=== PATIENT | female | born 1960 | race Caucasian/White ===

== ENCOUNTER 2018-08-19 07:57 | Emergency (ER) | payer BC ==
[2018-08-19 08:49] LABS: #Basophils 0.1 thou/uL (0.0-0.2); #Eosinphils 0.1 thou/uL (0.0-0.7); #Lymphocytes 3.1 thou/uL (1.20-3.40); #Monocytes 0.6 thou/uL (0.11-0.59); %Basophils 1.1 % (0.0-1.0); %Eosinophils 1.3 % (0.0-10.0); %Lymphocytes 28.5 % (21.0-51.0); %Monocytes 5.5 % (0.0-10.0); %Neutrophils 63.7 % (42.0-75.0); Hemoglobin 14.3 g/dL (12.0-16.0); Mean Corpuscular HGB CONC 32.8 g/dL (32.0-36.0); Mean Corpuscular Hemoglobin 30.8 pg (27.0-31.0); Mean Corpuscular Volume 93.8 fL (78.0-98.0); Platelet Count 317 thou/uL (130-400); RBC Distribution Width 11.3 % (11.5-14.5); Red Blood Cell (RBC) Count 4.64 mill/uL (4.20-5.40)
[2018-08-19 08:52] LABS: ALT (SGPT) 28 U/L (8-55); AST (SGOT) 25 U/L (5-34); Albumin 4.4 g/dL (3.5-5.0); Alkaline Phosphatase 57 U/L (40-150); Anion Gap 13 mmol/L (10-20); BUN (Urea Nitrogen) 14 mg/dL (9.8-20.1); Bilirubin, Total Less than 0.2 mg/dL (0.2-1.2); Calc. Creatinine Clearance 0 mL/min (70-130); Calcium 9.9 mg/dL (7.8-10.44); Carbon Dioxide 25 mmol/L (22-29); Chloride 104 mmol/L (98-107); Estimated GFR-MDRD 83; Globulin 2.9 g/dL (2.4-3.5); Glucose 93 mg/dL (70-105); Lipase 32 U/L (8-78); Potassium 4.1 mmol/L (3.5-5.1); Protein, Total 7.3 g/dL (6.0-8.3); Sodium 138 mmol/L (136-145)
[2018-08-19 09:11] LABS: Bilirubin Negative (Negative); Blood, Urine Trace (Negative); Clarity SLIGHTLY (Clear); Glucose, Urine (Dipstick) Negative (Negative); Leukocyte Negative (Negative); Nitrite Negative (Negative); Protein, Urine (Dipstick) Negative (Neg-Trace); Specific Gravity, Urine 1.015 (1.005-1.030); Urobilinogen 0.2 mg/dL (0.2-1.0)
[2018-08-19 09:17] LABS: Bacteria/HPF None Seen HPF (None Seen); Crystals/HPF None Seen HPF (Negative); Hyaline Casts/LPF NONE SEEN LPF (0-3 Hyaline); Other Casts/LPF None Seen LPF (0-3 Hyaline); Oval Fat Bodies/HPF None Seen HPF (None Seen); RBC/HPF 0-3 HPF (0-3); Renal Epithelial None Seen HPF (0-3); Sperm/HPF None Seen HPF (None Seen); Squamous Epithelial 0-3 HPF (0-3); Transitional Epithelial NONE SEEN HPF (0-3); Trichomonas/HPF None Seen HPF (None Seen); WBC/HPF 0-3 HPF (0-3); Yeast-All Forms None Seen HPF (None Seen)
--- NOTE | 2018-08-19 10:41 | CT ---
CT ABDOMEN AND PELVIS WITH IV CONTRAST: DATE: 08/19/18. HISTORY: Abdominal pain. This was diagnosed 2 weeks ago with diverticulitis. The patient states the patient is localized and more severe in the suprapubic region of the left lower quadrant. COMPARISON: None available. FINDINGS: There is minimal linear atelectasis versus scarring in the lingula. Lung bases are otherwise clear. Mild degenerative changes are seen in the spine. Vascular calcifications are seen in the abdominal aorta and involving the iliac arteries with areas o f eccentric plaque seen within the abdominal aorta. A subcentimeter too small to characterize hypodense lesion is seen in the superior pole left kidney. The liver, spleen, pancreas, bilateral adrenal glands, and right kidney demonstrate a normal CT appea mitch. The uterus is normal in appearance for patient's age. The urinary bladder is mostly decompressed and not well evaluated on this exam. There are multiple colonic diverticula seen in the region of the sigmoid colon without CT findings to suggest diverticulitis. The appendix is normal in caliber and filled with gas. The small bowel is normal in caliber. There is no free fluid, fluid collection, or lymphadenopathy seen in the abdomen or pelvis. IMPRESSION: 1. No acute findings are seen in the abdomen or pelvis. 2. Subcentimeter too small to characterize lesion left kidney. 3. Colonic diverticulosis. POS: [facility]IE
[2018-08-20 21:00] LABS: Chlamydia by PCR Not Detected (NotDetected); GC by PCR Not Detected (NotDetected)
== END 2018-08-19 10:00 | disposition home or self-care (01) ==
LOC: BURERS 07:57
DX: R10.32 Left lower quadrant pain (principal); E78.5 Hyperlipidemia, unspecified; I10 Essential (primary) hypertension; Z79.899 Other long term (current) drug therapy
CPT/HCPCS: 74177; 80053; 81003; 81015; 83605; 83690; 85025; 87480; 87491; 87510; 87591; 87660

== ENCOUNTER 2019-07-16 17:18 | Emergency (ER) | payer BC ==
[2019-07-16] MEDS ORDERED: Ibuprofen 800 MG TAB ONE (17:40)
[2019-07-16 17:55] LABS: #Basophils 0.1 thou/uL (0.0-0.2); #Lymphocytes 2.1 thou/uL (1.20-3.40); #Monocytes 1.4 thou/uL (0.11-0.59); %Basophils 0.7 % (0.0-1.0); %Eosinophils 0.2 % (0.0-10.0); %Lymphocytes 14.5 % (21.0-51.0); %Monocytes 9.8 % (0.0-10.0); %Neutrophils 74.8 % (42.0-75.0); Hemoglobin 12.7 g/dL (12.0-16.0); Mean Corpuscular HGB CONC 33.7 g/dL (32.0-36.0); Mean Corpuscular Hemoglobin 32.1 pg (27.0-31.0); Mean Corpuscular Volume 95.3 fL (78.0-98.0); Platelet Count 180 thou/uL (130-400); RBC Distribution Width 11.4 % (11.5-14.5); Red Blood Cell (RBC) Count 3.97 mill/uL (4.20-5.40); White Blood Cell (WBC) Count 14.7 thou/uL (4.8-10.8)
[2019-07-16 18:12] LABS: ALT (SGPT) 10 U/L (8-55); AST (SGOT) 16 U/L (5-34); Albumin 4.3 g/dL (3.5-5.0); Alkaline Phosphatase 70 U/L (40-150); Anion Gap 16 mmol/L (10-20); BUN (Urea Nitrogen) 9 mg/dL (9.8-20.1); Bilirubin, Total 0.5 mg/dL (0.2-1.2); CK (CPK) 54 U/L (29-168); Calc. Creatinine Clearance 0 mL/min (70-130); Calcium 9.9 mg/dL (7.8-10.44); Carbon Dioxide 26 mmol/L (22-29); Chloride 97 mmol/L (98-107); Estimated GFR-MDRD 85; Globulin 3.2 g/dL (2.4-3.5); Glucose 105 mg/dL (70-105); Lipase 11 U/L (8-78); Potassium 4.5 mmol/L (3.5-5.1); Protein, Total 7.5 g/dL (6.0-8.3); Sodium 134 mmol/L (136-145)
== END 2019-07-16 18:32 | disposition home or self-care (01) ==
LOC: BURERS 17:18
DX: R50.9 Fever, unspecified (principal); E78.5 Hyperlipidemia, unspecified; E78.00 Pure hypercholesterolemia, unspecified; I10 Essential (primary) hypertension; Z79.899 Other long term (current) drug therapy
CPT/HCPCS: 36415; 80053; 82550; 83690; 84484; 85025; 93005

== ENCOUNTER 2019-08-11 11:20 | Emergency (ER) | payer BC ==
[2019-08-11] MEDS ORDERED: Ketorolac Tromethamine 30 MG/ML VIAL ONE (11:48)
[2019-08-11] MEDS ORDERED: Acetaminophen 500 MG TAB ONE (11:58)
[2019-08-11 12:08] LABS: Band 1 % (5-11); Eosinophils 1 % (0-10); Hemoglobin 12.9 g/dL (12.0-16.0); Lymphocytes 15 % (21-51); MDiff Complete? YES; Mean Corpuscular HGB CONC 33.1 g/dL (32.0-36.0); Mean Corpuscular Hemoglobin 32.2 pg (27.0-31.0); Mean Corpuscular Volume 97.4 fL (78.0-98.0); Monocytes 7 % (0-10); Neutrophil 76 % (42-75); Platelet Count 249 thou/uL (130-400); RBC Distribution Width 12.4 % (11.5-14.5); Red Blood Cell (RBC) Count 3.99 mill/uL (4.20-5.40); White Blood Cell (WBC) Count 14.3 thou/uL (4.8-10.8)
[2019-08-11] MEDS ORDERED: Ondansetron ODT 4 MG TAB ONE (12:09)
[2019-08-11 12:21] LABS: ALT (SGPT) 11 U/L (8-55); AST (SGOT) 18 U/L (5-34); Albumin 4.2 g/dL (3.5-5.0); Alkaline Phosphatase 65 U/L (40-150); Anion Gap 15 mmol/L (10-20); BUN (Urea Nitrogen) 13 mg/dL (9.8-20.1); Bilirubin, Total 0.3 mg/dL (0.2-1.2); Calc. Creatinine Clearance 0 mL/min (70-130); Calcium 9.2 mg/dL (7.8-10.44); Carbon Dioxide 25 mmol/L (22-29); Chloride 101 mmol/L (98-107); Estimated GFR-MDRD 79; Globulin 2.7 g/dL (2.4-3.5); Glucose 106 mg/dL (70-105); Lipase 16 U/L (8-78); Potassium 3.8 mmol/L (3.5-5.1); Protein, Total 6.9 g/dL (6.0-8.3); Sodium 137 mmol/L (136-145)
[2019-08-11 12:28] LABS: Bilirubin Negative (Negative); Blood, Urine Moderate (Negative); Clarity Hazy (Clear); Glucose, Urine (Dipstick) Negative (Negative); Leukocyte Small (Negative); Nitrite Negative (Negative); Protein, Urine (Dipstick) Trace mg/dL (Neg-Trace); Urobilinogen 0.2 mg/dL (Less than 2)
[2019-08-11 12:29] LABS: Bacteria/HPF 1+ HPF (None Seen); RBC/HPF 21-50 HPF (0-3); Squamous Epithelial 0-3 HPF (0-3)
== END 2019-08-11 12:40 | disposition home or self-care (01) ==
LOC: BURERS 11:20
DX: K57.92 Diverticulitis of intestine, part unspecified, without perforation or abscess without bleeding (principal); E78.5 Hyperlipidemia, unspecified; E78.00 Pure hypercholesterolemia, unspecified; I10 Essential (primary) hypertension; Z79.899 Other long term (current) drug therapy
CPT/HCPCS: 36415; 80053; 81003; 81015; 83690; 85025; 99284; J1885; Q0162

== ENCOUNTER 2019-08-12 11:08 | Emergency (ER) | payer BC ==
[2019-08-12] MEDS ORDERED: Fentanyl 100 MCG/2 ML VIAL ONE (11:32)
[2019-08-12] MEDS ORDERED: Glycopyrrolate 0.4 MG/ 2 ML VIAL ONE (11:33)
[2019-08-12] MEDS ORDERED: Ketorolac Tromethamine 30 MG/ML VIAL ONE (11:33)
[2019-08-12 11:58] LABS: Anion Gap 18 mmol/L (10-20); Band 15 % (5-11); Hemoglobin 12.6 g/dL (12.0-16.0); Lymphocytes 4 % (21-51); MDiff Complete? YES; Mean Corpuscular HGB CONC 32.1 g/dL (32.0-36.0); Mean Corpuscular Hemoglobin 31.4 pg (27.0-31.0); Mean Platelet Volume 8.2 fL (7.4-10.4); Neutrophil 80 % (42-75); Platelet Count 166 thou/uL (130-400); Reactive Lymphocytes 1 % (0-10); Red Blood Cell (RBC) Count 4.02 mill/uL (4.20-5.40); White Blood Cell (WBC) Count 21.1 thou/uL (4.8-10.8)
[2019-08-12 12:03] LABS: Bilirubin Negative (Negative); Blood, Urine Moderate (Negative); Clarity Clear (Clear); Glucose, Urine (Dipstick) Negative (Negative); Leukocyte Trace (Negative); Nitrite Negative (Negative); Protein, Urine (Dipstick) Trace mg/dL (Neg-Trace); Urobilinogen 0.2 mg/dL (Less than 2)
[2019-08-12 12:04] LABS: ALT (SGPT) 18 U/L (8-55); AST (SGOT) 23 U/L (5-34); Albumin 4.1 g/dL (3.5-5.0); Alkaline Phosphatase 55 U/L (40-150); BUN (Urea Nitrogen) 19 mg/dL (9.8-20.1); Bilirubin, Total 0.8 mg/dL (0.2-1.2); Calc. Creatinine Clearance 0 mL/min (70-130); Calcium 9.5 mg/dL (7.8-10.44); Carbon Dioxide 24 mmol/L (22-29); Chloride 95 mmol/L (98-107); Estimated GFR-MDRD 44; Globulin 2.9 g/dL (2.4-3.5); Glucose 122 mg/dL (70-105); Potassium 4.2 mmol/L (3.5-5.1); Sodium 133 mmol/L (136-145)
[2019-08-12] MEDS ORDERED: cefTRIAXone\\ROCEPHIN 2 GM VIAL ONE (12:06)
[2019-08-12] MEDS ORDERED: Sodium Chloride 0.9% 100 ML ONE (12:07)
[2019-08-12 12:10] LABS: Bacteria/HPF None Seen HPF (None Seen); RBC/HPF 0-3 HPF (0-3); Squamous Epithelial 0-3 HPF (0-3); WBC/HPF 0-3 HPF (0-3)
--- NOTE | 2019-08-12 12:12 | CT ---
EXAM: Abdomen and pelvic CT scan without contrast: HISTORY: Abdominal pain COMPARISON: None FINDINGS: Very minimal linear bibasilar parenchymal changes, nonspecific. Liver: Unremarkable. Gallbladder:Unremarkable. Pancreas:Unremarkable Spleen:Unremarkable. Adrenal glands:Unremarkable. Kidneys:Marked left sided ureteral hydronephrosis with prominent left perirenal fat stranding and flu id density secondary to an obstructing 0.5 cm calculus at the ureterovesicular junction region on the left side. Additional nonobstructing small bilateral renal calculi. No solid or cystic renal mass. No evidence for bowel obstruction. No CT evidence for acute appendicitis. The urinary bladder is unremarkable. Reproductive system:Unremarkable No abscess, adenopathy, or abnormal fluid collection within the abdomen or pelvis. Prominent generalized arterial vascular calcific disease with potentially significant stenosis in the left common iliac artery region. IMPRESSION: High-grade obstruction secondary to a distal 0.5 cm left ureteral calculus. Nonobstructing renal calculi. No evidence for other acute process.
== END 2019-08-12 13:15 | disposition home or self-care (01) ==
LOC: BURERS 11:08
DX: N13.2 Hydronephrosis with renal and ureteral calculous obstruction (principal); N39.0 Urinary tract infection, site not specified; E78.5 Hyperlipidemia, unspecified; E78.00 Pure hypercholesterolemia, unspecified; I10 Essential (primary) hypertension; Z79.899 Other long term (current) drug therapy
CPT/HCPCS: 36415; 74176; 80053; 81003; 81015; 85025; 96365; 96375; J0696; J1885; J3010; J3490

== ENCOUNTER 2020-09-26 10:59 | Outpatient (CLI) | payer BC ==
--- NOTE | 2020-09-26 16:45 | RAD ---
RIGHT KNEE TWO VIEWS: 09/26/20 No fracture or joint effusion was seen. The joint space is normal in width. There is no significant a rthritic change noted on the x-rays. IMPRESSION: No acute findings. POS: HOME
--- NOTE | 2020-09-26 16:46 | RAD ---
LEFT KNEE TWO VIEWS: 09/26/20 No fracture or joint effusion was seen. The joint space appears normal. There is no significant arthr itic change. Faint arterial calcifications are present. IMPRESSION: No acute finding. POS: HOME
--- NOTE | 2020-09-26 17:06 | RAD ---
RIGHT SHOULDER THREE VIEWS: 09/26/20 There is a very large calcification just lateral to the humeral head. Calcific tendonitis is presumed . No fracture, dislocation, or AC joint widening was seen. There is no significant arthritic change. I would note that the calcification in the rotator cuff tendon is rather large, being about 2 cm in l ength. IMPRESSION: Calcific tendonitis. POS: HOME
== END 2020-09-26 11:00 | disposition home or self-care (01) ==
LOC: BURRAD 10:59
PROVIDERS: ATTEND Nurse Practitioner Family
DX: M15.9 Polyosteoarthritis, unspecified (principal); M75.31 Calcific tendinitis of right shoulder

== ENCOUNTER 2025-11-17 09:07 | Emergency (ER) | payer BC, SELFPAY ==
[2025-11-17] MEDS ORDERED: predniSONE 20 MG TAB ONE (09:52)
== END 2025-11-17 09:58 | disposition home or self-care (01) ==
LOC: BURERS 09:07
DX: H92.01 Otalgia, right ear (principal); I10 Essential (primary) hypertension; F17.210 Nicotine dependence, cigarettes, uncomplicated
CPT/HCPCS: 99282; J7512